=== PATIENT | male | born 1970 | race Caucasian/White ===

== ENCOUNTER 2017-06-13 03:51 | Emergency (ER) | payer SELFPAY ==
[~2017-06-13] VITALS: Ht 180.3 cm; Wt 81.6 kg
[2017-06-13] MEDS ORDERED: ETOMIDATE 2 MG/ML VIAL ONE (03:55)
[2017-06-13] MEDS ORDERED: ETOMIDATE 2 MG/ML VIAL IV ONE (04:00)
--- NOTE | 2017-06-13 04:00 | NUR ---
18G LEFT AC IV STARTED. BLOOD SAMPLE OBTAINED AND SENT TO LAB
--- NOTE | 2017-06-13 04:00 | NUR ---
47 YO MALE BB SELF, PATIENT IS ASLERT AND ORIENTED X 3, PATIENT STATES HE FELL DOWN STAIRS, HURT HIS RIGHT ANKLE. NOTED OBVIOUS DEFORMITIES TO ANKLE. POSITIVE PED PULSES. PATIENT WAS ASSISTED TO ER BED, SKIN WARM AND DRY, RESP EVEN AND UNLABORED. PATIENT WAS PLACED ON RECRUITING TEAM LEAD. AWAITING ORDERS FROM PROVIDER, WILL CONTINUE TO MONITOR
--- NOTE | 2017-06-13 04:05 | NUR ---
CALLED LAB FOR VACCINE KEY CUSTOMER LEADER
--- NOTE | 2017-06-13 04:11 | NUR ---
STARTED MODERATE SEDATION. MD ZAIDI, RT MALIKA, RN GOPI, RN HANS AND EMT BARRY AT BED SIDE. ADMIN 5 MG ETOMIDATE IV ORDERED BY MD ZAIDI. MD ZAIDI REDUCED ANKLE WITHOUT INCIDENT. PATIENT IS BACK TO BASELINE AT 0422. VITAL SIGNS UPDATED.
[2017-06-13 04:14] LABS: BASOPHILS % (AUTO) 0.3 % (0.0-2.0); EOSINOPHILS # (AUTO) 0.5 /CMM (0.0-0.7); EOSINOPHILS % (AUTO) 6.3 % (0.0-6.0); HEMATOCRIT 52 % (39-51); HEMOGLOBIN 17.6 g/dL (13.5-17.5); LYMPHOCYTES # (AUTO) 2.4 /CMM (0.8-4.8); MEAN CORPUSCULAR HEMOGLOBIN 30 PG (26.0-33.0); MEAN CORPUSCULAR HGB CONC 34 g/dl (31.0-36.0); MEAN CORPUSCULAR VOLUME 87 fL (80-96); MONOCYTES # (AUTO) 0.5 /CMM (0.1-1.30); MONOCYTES % (AUTO) 5.6 % (2.0-12.0); NEUTROPHILS # (AUTO) 5.1 /CMM (1.8-8.9); NEUTROPHILS % (AUTO) 59.8 % (43.0-81.0); PLATELET COUNT (AUTO) 148 /CMM (150-450); RDW COEFFICIENT OF VARIATION 14.4 (11.5-15.0); RED BLOOD CELL COUNT(AUTO) 5.94 MIL/uL (4.5-6.0); WHITE BLOOD COUNT (AUTO) 8.4 K/uL (4.3-11.0)
[2017-06-13 04:23] LABS: CALCIUM, SERUM 8.5 mg/dL (8.5-10.1); CREATININE 1.1 mg/dL (0.6-1.3); POTASSIUM 3.6 mmol/L (3.5-5.1)
--- NOTE | 2017-06-13 04:26 | NUR ---
RADIOLOGY AT BED SIDE FOR X RAY
[2017-06-13 04:27] LABS: INR 0.9 (0.87-1.13)
[2017-06-13 04:31] LABS: BILIRUBIN,DIRECT 0.1 mg/dL (0.0-0.2); BILIRUBIN,TOTAL 0.5 mg/dL (0.2-1.0); TOTAL PROTEIN, SERUM 7.7 g/dL (6.4-8.2)
[2017-06-13] MEDS ORDERED: ONDANSETRON HCL/PF 4 MG/2 ML VIAL ONE (04:53)
[2017-06-13] MEDS ORDERED: MORPHINE SULFATE INJ 4 MG/ML DISP.SYRIN ONE (04:53)
[2017-06-13] MEDS ORDERED: MORPHINE SULFATE INJ 2 MG/ML DISP.SYRIN IV ONE (05:00)
[2017-06-13] MEDS ORDERED: ONDANSETRON HCL/PF - ER 4 MG/2 ML VIAL IV ONE (05:00)
[2017-06-13 05:40] VITALS: BP 160/101
--- NOTE | 2017-06-13 05:41 | NUR ---
Patient discharged to home in stable condition. Written and verbal after care instructions given. Patient verbalizes understanding of instruction.IV removed. Catheter intact and site benign. Pressure and 4x4 applied to site. No bleeding noted. PT ambulatory with a steady gait
== END 2017-06-13 05:41 | disposition home or self-care (01) ==
LOC: ER 03:53
DX: S82.51XA Displaced fracture of medial malleolus of right tibia, initial encounter for closed fracture (principal); W10.9XXA Fall (on) (from) unspecified stairs and steps, initial encounter; Y93.89 Activity, other specified; Y92.89 Other specified places as the place of occurrence of the external cause; Y99.8 Other external cause status
CPT/HCPCS: 36415; 73560-TC; 73590-TC; 80048-TC; 80076-TC; 85025-TC; 85730-TC; A4606; J2270; J2405; J3490; J7030; Z7610

== ENCOUNTER 2025-03-24 00:35 | Emergency (ER) | payer SELFPAY ==
[~2025-03-24] VITALS: Ht 180.3 cm; Wt 81.6 kg
[2025-03-24 01:20] VITALS: BP 144/90; TEMP 98.3; O2SAT 96
== END 2025-03-24 01:28 | disposition left against medical advice (07) ==
LOC: ER 00:42
DX: F19.10 Other psychoactive substance abuse, uncomplicated (principal); Z02.89 Encounter for other administrative examinations; Z60.2 Problems related to living alone